=== PATIENT | male | born 2005 | race Caucasian/White ===

== ENCOUNTER 2024-04-15 06:48 | Day surgery (SDC) | payer OTHER ==
[~2024-04-15] VITALS: Ht 195.6 cm; Wt 91.4 kg
[~2024-04-15 06:48] MED LIST: Lactated Ringer's 1,000 ML IV ONE; Lactated Ringer's 1,000 ML ONE
[2024-04-15] MEDS ORDERED: CeFAZolin Sodium 2,000 MG VIAL ONE (06:58)
[2024-04-15] MEDS ORDERED: IBUP600 (07:04)
[2024-04-15] MEDS ORDERED: TRAZ50 PO (07:04)
[2024-04-15] MEDS ORDERED: Lactated Ringer's 1,000 ML IV ONE (07:16)
[2024-04-15] MEDS ORDERED: propofoL 20 ML IV ONE ×2 (08:08→08:40)
[2024-04-15] MEDS ORDERED: Midazolam HCl 1MG / ML 2ML Vial ONE (08:22)
[2024-04-15] MEDS ORDERED: Dexamethasone Sod Phos 10 MG/ML 1ML VIAL ONE (08:39)
[2024-04-15] MEDS ORDERED: Ketorolac Tromethamine 30mg Vial ONE (08:39)
[2024-04-15] MEDS ORDERED: Ondansetron HCl 2 MG / ML 2ML Vial ONE (08:39)
[2024-04-15] MEDS ORDERED: Lidocaine 1%-Epineph 1:100000 20 ML MDV INJ ONE (09:05)
[2024-04-15] MEDS ORDERED: Lidocaine 1%-Epineph 1:200000 30 ML SDV ONE (10:28)
== END 2024-04-15 10:33 | disposition home or self-care (01) ==
LOC: ORSCSDS 06:48
PROVIDERS: Orthopaedic Surgery
PROC: 0PST04Z Reposition Right Finger Phalanx with Internal Fixation Device, Open Approach (ICD-10-PCS; principal; 2024-04-15 08:15)
DX: S62.614A Displaced fracture of proximal phalanx of right ring finger, initial encounter for closed fracture (principal)
CPT/HCPCS: C1713; C1769; J0690; J1100; J1885; J2250; J2405; J2704; J7120